=== PATIENT | male | born 1990 | race Two or more races ===

== ENCOUNTER 2018-12-13 02:57 | Emergency (ER) | payer OTHER ==
[~2018-12-13] VITALS: Ht 188 cm; Wt 99.8 kg
[2018-12-13] MEDS ORDERED: KETO10TA2 PO (04:27)
[2018-12-13] MEDS ORDERED: AMOX-CLAV 875-1 EACH PO (04:27)
== END 2018-12-13 04:34 | disposition home or self-care (01) ==
LOC: ER 02:57
DX: L02.411 Cutaneous abscess of right axilla (principal)

== ENCOUNTER 2018-12-22 00:49 | Emergency (ER) | payer OTHER ==
[~2018-12-22] VITALS: Ht 182.9 cm; Wt 99.8 kg
[~2018-12-22 00:49] MED LIST: AMOX-CLAV 875-1 EACH PO; KETO10TA2 PO
[2018-12-22] MEDS ORDERED: BACTRIM DS TAB1 EACH PO ×2 (03:24)
[2018-12-22] MEDS ORDERED: ULTRAM50 MG PO ×2 (03:24)
== END 2018-12-22 03:40 | disposition home or self-care (01) ==
LOC: ER 00:49
DX: L73.8 Other specified follicular disorders (principal)